=== PATIENT | female | born 1960 | race Caucasian/White ===

== ENCOUNTER 2017-02-01 08:08 | Day surgery (SDC) | payer BC, OTHER ==
[~2017-02-01 08:08] MED LIST: Buffered Lidocaine 0.9% SYRIN* 5 ML/SYR SYRINGE INTRADERM ONE; Dexamethasone IV* 4 MG/ML 1 ML (4 MG) IV SLOW PU ONE; Famotidine IV* 10 MG/ML 2 ML (20 mg) IV ONE; Scopolamine 1.5 mg* PATCH TRANSDERM ONE
[2017-02-01] MEDS ORDERED: Scopolamine 1.5 mg* PATCH ONE (08:32)
[2017-02-01] MEDS ORDERED: Famotidine IV* 10 MG/ML 2 ML (20 mg) ONE (08:33)
[2017-02-01] MEDS ORDERED: ceFAZolin 2 GM PREMIX (*) 50 ML IVPB ONE (08:33)
[2017-02-01] MEDS ORDERED: Dexamethasone IV* 4 MG/ML 1 ML (4 MG) ONE (08:33)
[2017-02-01] MEDS ORDERED: Lidocaine 2% PF * 5 ML VIAL ONE (08:44)
[2017-02-01] MEDS ORDERED: Propofol* 10 MG/ML 20 ML BTL IV PUSH ONE (08:44)
[2017-02-01] MEDS ORDERED: fentaNYL* 50 MCG/ML 5 ML VIAL (250 MCG VIAL) ONE (08:45)
[2017-02-01] MEDS ORDERED: Midazolam* 1 MG/ML 5 ML VIAL (5 MG) ONE (08:45)
[2017-02-01] MEDS ORDERED: Bupivacaine 0.25% SDV* 30 ML ONE (09:02)
[2017-02-01] MEDS ORDERED: Ondansetron INJ* 2 MG/ML VIAL ONE (09:42)
[2017-02-01] MEDS ORDERED: EPHEDrine (Pressors)* 50 MG/ML VIAL ONE (09:50)
[2017-02-01] MEDS ORDERED: PROCHLORPERAZINE INJ 5 MG/ML 2 ML VIAL IV PRN (10:02)
[2017-02-01] MEDS ORDERED: HYDROcodone/ACETAMIN 5-325 MG* 1 TAB PO PRN (10:02)
[2017-02-01] MEDS ORDERED: fentaNYL* 50 MCG/ML 2 ML VIAL (100 MCG VIAL) IV PRN (10:02)
[2017-02-01] MEDS ORDERED: oxyCODONE/Acetamin 5/325 MG* TAB PO PRN (10:02)
[2017-02-01] MEDS ORDERED: Ibuprofen TAB* 400 MG PO SCH (11:00)
[2017-02-01] MEDS ORDERED: PROCHLORPERAZINE INJ 5 MG/ML 2 ML VIAL ONE (11:54)
[2017-02-01] MEDS ORDERED: fentaNYL* 50 MCG/ML 2 ML VIAL (100 MCG VIAL) ONE (12:01)
[2017-02-01 13:01] VITALS: BP 128/73
--- NOTE | 2017-02-02 02:46 | OP ---
DATE OF OPERATION: 02/01/17 - [facility] DATE OF : 58 SURGEON: Trace Barnett MD MACHINIST 2ND SHIFT: KYRA Crystal. An assistant administrator was needed for the entirety of the procedure to assist with positioning of the arm and retraction. ANESTHESIOLOGIST: Dr. Yuliet Adame. ANESTHESIA: General. PRE-OP DIAGNOSES: 1. Left carpal tunnel syndrome. 2. Left stage 3 basal joint arthritis. POST-OP DIAGNOSES: 1. Left carpal tunnel syndrome. 2. Left stage 3 basal joint arthritis. OPERATIVE PROCEDURE: 1. Left open carpal tunnel release. 2. Left thumb carpometacarpal arthroplasty with trapeziectomy and split flexor carpi radialis tendon transfer for thumb suspension. INDICATIONS: Lyla is 57. She has had progressive carpal tunnel syndrome that have really become quite severe. I had seen her before for her left thumb basal joint arthritis. She has previously had a right carpal tunnel release done three and a half years ago and has done quite well from that. She did not get repeat electrodiagnostics for the left arm as she had them done on the right arm and they were quite uncomfortable and she really did not want to have them done again as her symptoms are fairly classic and I think we needed to get those done. I talked to her about her basal joint arthritis for which I had seen her before. She is braced for an extensive period of time. It is not working. She did not want to have an injection. I talked to her about the surgery and she wanted to proceed with the surgery. We talked about the risks and benefits of postoperative course. ESTIMATED BLOOD LOSS: 5 mL. COMPLICATIONS: None. FINDINGS: As expected, severe DJD in the basal joint. The scaphotrapezoid joint looked quite healthy. DESCRIPTION OF PROCEDURE: Lyla was seen in the preoperative holding area. The correct site, side, and procedure were identified. We came back to the operating room. The arm was prepped and draped in the usual fashion. A formal time-out was performed after anesthesia was induced. I began by exsanguinating the arm with the Esmarch and the tourniquet was inflated to 250 mmHg. I then made a 2 to 3 cm incision longitudinally in the standard location for an open carpal tunnel release. Dissection was carried down through the subcutaneous tissue in her palmar fascia. The transverse carpal ligament was released just off the radial aspect of the hook of the hamate. I completed the release distally and then worked proximally until I got to the proximal aspect of the incision. I released the subcutaneous tissue and retracted this volarly and ulnarly and then direct visualization released the remainder of the transverse carpal ligament and distal antebrachial fascia to the level several centimeters proximal to the wrist flexion crease. I checked and there was absolutely no compression on the nerve. I went ahead and irrigated out the wound. The skin was closed with 4-0 nylon suture. I then turned my attention to the base of the thumb. I made a 3 cm incision from the base of the thumb down towards the radial styloid just dorsal to the first dorsal compartment tendons. The dissection was carried down longitudinally to preserve the coursing sensory nerves. The radial artery was identified and mobilized and protected throughout the entirety of the case. The venous plexus deep to the radial artery was cauterized. I then used my 15 blade to longitudinally incised the capsule and raised subperiosteal and capsular flaps exposing the scaphotrapezial joint, the carpometacarpal joint and the trapeziotrapezoid joint. I used a [place] blade to circumferentially release the soft tissue off the trapezium. The trapezium was then excised piecemeal with the rongeur. Once this was completely excised, I went ahead and irrigated out the wound. I then used a sequentially large drill bits to make a drill hole through the base of the thumb metacarpal from the dorsal radial aspect of the metacarpal out exiting out the volar ulnar margin of the articular surface near the second metacarpal base. The drill hole was irrigated out. All the loose fragments were removed and the area was cleaned up. I then turned my attention to the forearm. I made three transverse incisions, each more proximal than the lest on the volar forearm directly over the flexor carpi radialis tendon. Dissection was carried down and the sheath was opened through the distal most incision. I released the sheath along its course and released any tendon adhesions. I passed a right angle underneath the tendon and elevated the tendon out of the wound. This was then split with a 15 blade and a 25-gauge wire was passed through the split of the tendon. I then, in similar fashion, freed up the sheath through each of the proximal 2 incisions until the sheath was released along the entirety of the FCR tendon and all the adhesions were released with the tenotomy scissors. I then pulled the 25-gauge wire sequentially into each of the proximal wounds with use of Inocencia clamp until the split in the FCR tendon was complete and the FCR tendon was released proximally at the musculotendinous junction. Any muscular attachments to the split end of the tendon were cleaned off with 15 blade. I then used 3-0 Ethibond suture to secure the tail of the proximal aspect of the tendon to avoid any tendon fraying or splinting during passage of the transfer. With the tendon tail in the distal most wound, I went ahead and passed a 25 gauge wire down into the thumb base wound through the FCR sheath distally and retrieved another 25-gauge wire, which was pulled up into the distal forearm wound. The tendon tail was then shuttled with that 25 gauge wire down into the thumb wound. The split was completed up to the base of the second metacarpal. I then used a 25-gauge wire to pass the tendon split through the drill hole in the base of the metacarpal. It was then woven back around the intact limb of the FCR and appropriate tension was set and the tendon transfer was secured with multiple figure-of- eight 3-0 Ethibond sutures. First suture grabbed all three limbs of the transfer and then the later sutures sewed the intact limb to the intact limb. The remainder of the tendon tail was rolled up into a ball and secured with a 3- 0 Ethibond suture. This was then docked as an interposition between the base of the thumb metacarpal and the distal pole of the scaphoid. The wound was copiously irrigated. Please note that after I removed the trapezium, I did pull longitudinal traction on the index finger and with the use of a [place] elevator, was able to open up and inspect the scaphotrapezoid joint and that looked very healthy. After I had completed the tendon transfer and tendon interposition, I went ahead and sewed the capsule closed with 3-0 Ethibond suture until watertight seal was obtained. All the operative sites were then infiltrated with 0.25% plain Marcaine. Skin was closed with 4-0 nylon suture. Wounds were dressed with Xeroform, 4x4, sterile Webril, and a thumb spica splint was applied leaving the IP joint free. Tourniquet was deflated and the hand pinked up immediately. Total tourniquet time was around 90 minutes. The patient was then awoken up and taken to the recovery room in stable condition. [id number]/[facility] #: [id number] MTDD
[2017-02-04] MEDS ORDERED: Scopolomine PATCH Remove* 1 NOTE MISC PATCH OFF ONE (06:00)
== END 2017-02-01 13:03 | disposition home or self-care (01) ==
LOC: OREAST 08:08
PROVIDERS: ATTEND Orthopaedic Surgery Hand Surgery
PROC: 01N50ZZ Release Median Nerve, Open Approach (ICD-10-PCS; principal; 2017-02-01 09:30)
DX: G56.02 Carpal tunnel syndrome, left upper limb (principal); M18.12 Unilateral primary osteoarthritis of first carpometacarpal joint, left hand; J45.909 Unspecified asthma, uncomplicated; Z79.51 Long term (current) use of inhaled steroids; Z87.891 Personal history of nicotine dependence
CPT/HCPCS: 88304; 88311; A9270-GY; J0690; J0780; J1100; J2250; J2405; J2704; J3010

== ENCOUNTER 2017-03-12 12:06 | Day surgery (SDC) | payer OTHER ==
[~2017-03-12 12:06] MED LIST changes: -Dexamethasone IV* 4 MG/ML 1 ML (4 MG) IV SLOW PU ONE; +Ondansetron INJ* 2 MG/ML VIAL IV PRN; +PROCHLORPERAZINE INJ 5 MG/ML 2 ML VIAL IV PRN; -Scopolamine 1.5 mg* PATCH TRANSDERM ONE; +Scopolamine 1.5 mg* PATCH TRANSDERM PRN; +oxyCODONE/Acetamin 5/325 MG* TAB PO PRN
[2017-03-12] MEDS ORDERED: ceFAZolin 2 GM PREMIX (*) 2 GM/50 ML BAG IVPB ONE (12:18)
[2017-03-12] MEDS ORDERED: Famotidine IV* 10 MG/ML 2 ML (20 mg) ONE (12:18)
[2017-03-12] MEDS ORDERED: Buffered Lidocaine 0.9% SYRIN* 5 ML/SYR SYRINGE ONE (12:18)
[2017-03-12] MEDS ORDERED: Bupivacaine 0.25% SDV* 30 ML ONE (12:22)
[2017-03-12] MEDS ORDERED: KETAMINE HCL* 50 MG/ML 10 ML VIAL ONE (12:35)
[2017-03-12] MEDS ORDERED: fentaNYL* 50 MCG/ML 2 ML VIAL (100 MCG VIAL) ONE ×3 (12:35→14:55)
[2017-03-12] MEDS ORDERED: Midazolam* 1 MG/ML 5 ML VIAL (5 MG) ONE (12:35)
[2017-03-12] MEDS ORDERED: Lidocaine 2% PF* 10 ML AMP ONE (14:08)
[2017-03-12] MEDS ORDERED: Lidocaine 2% PF * 5 ML VIAL ONE (14:08)
[2017-03-12] MEDS ORDERED: Propofol* 10 MG/ML 20 ML BTL IV PUSH ONE ×2 (14:08→14:45)
[2017-03-12] MEDS: fentaNYL* 50 MCG/ML 2 ML VIAL (100 MCG VIAL) IV PRN ×3 (14:56→15:23)
[2017-03-12] MEDS ORDERED: HYDROcodone/ACETAMIN 5-325 MG* 1 TAB ONE (15:18)
[2017-03-12] MEDS ORDERED: Ondansetron INJ* 2 MG/ML VIAL ONE (15:45)
[2017-03-12 16:43] VITALS: BP 139/87
--- NOTE | 2017-03-13 18:46 | OP ---
OPERATIVE REPORT: DATE OF OPERATION: 03/12/17 - [facility] DATE OF : 58 SURGEON: Trace Barnett MD ASSISTANTS: 1. KYRA Crystal. 2. KYRA Caballero ANESTHESIOLOGIST: Dr. Young. ANESTHESIA: Local MAC. PRE-OP DIAGNOSES: Severe neuropathic pain in the median nerve distribution and significant median nerve neuritis status post carpal tunnel release and basal joint arthroplasty 5 to 6 weeks ago. POST-OP DIAGNOSES: Severe neuropathic pain in the median nerve distribution and significant median nerve neuritis status post carpal tunnel release and basal joint arthroplasty 5 to 6 weeks ago. OPERATIVE PROCEDURE: Revision, left carpal tunnel release and flexor tendon tenosynovectomy. INDICATIONS: Lyla had the aforementioned surgery, which went very uneventfully about 5 to 6 weeks ago. Unfortunately, from the onset, she has had severe neuropathic pain in the index, middle, and ring fingers, not really localized to one particular common digital nerve or area, it is just generally in the distribution of the median nerve. We had been watching it and see if it would improve; however, 5 to 6 weeks after surgery, I saw her just a couple of days on Sunday, and it has just been unrelenting. I told her we could revise the carpal tunnel release with an extensile approach and just make sure there is absolutely no compression on the nerve and there is no hematoma or an incomplete release. She had wanted to proceed with that. The thumb is doing well. ESTIMATED BLOOD LOSS: 2 mL. COMPLICATIONS: None. FINDINGS: Significant flexor tendon tenosynovitis, but otherwise healthy nerve. I do not appreciate an incomplete release. DESCRIPTION OF PROCEDURE: Lyla was seen in the preoperative holding area where the correct site, side, and procedure were identified. We came back to the operative room. The arm was then prepped and draped in the usual fashion and a time-out was performed. I exsanguinated the arm with the Esmarch and the tourniquet was inflated to 250 mmHg. I utilized the prior incision and extended it a bit distally and then proximally, I flexion crease in Liseth-type fashion and ulnar to the palmaris longus tendon. I dissected it down with the knife and ultimately started more proximally and more healthy tissue out of the bed of scar tissue. The fascia was opened, the median nerve was identified. This was then taken back distally through the carpal tunnel. I did not really appreciate any clot that looked like that was unhealthy made of collagen fibers to suggest an incomplete release. I took the release all the way down to where the median nerve branch was into the common digital nerve. There was abundant flexor tenosynovium and I went ahead and excised all of that. I did not appreciate any hematoma or anything along those lines. I made sure the nerve was nicely free and mobile. At this point, everything was looking good. The nerve was completely released proximally and distally. We had a nice large incision, we could see everything. I therefore irrigated out the wound. Skin was closed with 4-0 nylon suture. The wound was dressed with Xeroform, 4x4's, sterile Webril, and an Drake bandage. I had infiltrated the Marcaine prior to making skin incision. She was then woken up and taken to the recovery room in stable condition. [id number]/[facility] #: [id number] MIKEY
[2017-03-15] MEDS ORDERED: Scopolomine PATCH Remove* 1 NOTE MISC PATCH OFF ONE (08:35)
== END 2017-03-12 17:08 | disposition home or self-care (01) ==
LOC: OR 12:06
PROVIDERS: ATTEND Orthopaedic Surgery Hand Surgery
DX: G56.12 Other lesions of median nerve, left upper limb (principal); M65.842 Other synovitis and tenosynovitis, left hand; Z98.890 Other specified postprocedural states; Z88.6 Allergy status to analgesic agent; Z88.8 Allergy status to other drugs, medicaments and biological substances; Z87.891 Personal history of nicotine dependence; G56.03 Carpal tunnel syndrome, bilateral upper limbs; M18.12 Unilateral primary osteoarthritis of first carpometacarpal joint, left hand
CPT/HCPCS: J0690; J2001; J2250; J2405; J2704; J3010

== ENCOUNTER 2018-09-20 13:35 | Emergency (ER) | payer OTHER ==
[2018-09-20 14:17] VITALS: BP 136/88
--- NOTE | 2018-09-20 14:59 | UC ---
Upper Extremity HPI - HPI Summary HPI Summary: 58 year old female with H/O psoriatic arthritis, Thrombocytopenia presents after fall few hours ago after tripping on rock, FOOSH, pain L wrist, R hand, abrasions R elbow, bruising/ swelling 5th R hand. On ASA 81mg daily for thrombo, humara for psoriatic arthritis - History of Current Complaint Chief Complaint: UCUpperExtremity Stated Complaint: LT WRIST RT HAND ELLOW Time Seen by Provider: 09/20/18 14:15 Hx Obtained From: Patient ?: No Onset/Duration: Sudden Onset, Lasting Hours Severity Initially: Moderate Severity Currently: Moderate Pain Intensity: 8 Pain Scale Used: 0-10 Numeric Location Of Pain: Is Discrete @ - right hand, left wrist Character: Sharp, Aching, Throbbing Aggravating Factor(s): Movement, Flexion, Extension Alleviating Factor(s): Ice, Rest Associated Signs And Symptoms: Positive: Swelling, Redness, Bruising Related History: Occupational Injury - Allergies/Home Medications Allergies/Adverse Reactions: Allergies Allergy/AdvReac Type Severity Reaction Status Date / Time indomethacin [From Indocin] Allergy Rash Verified 09/20/18 14:20 meloxicam Allergy Hives Verified 09/20/18 14:20 Home Medications: Home Medications Adalimumab (NF) [Humira Pen (NF)] 40 mg SUBCUT SEE INSTRUCTIONS 09/20/18 [ History Confirmed 09/20/18] Cetirizine* [ZyrTEC 10 MG TAB*] 10 mg PO DAILY 09/20/18 [History Confirmed 09/20] Alexander-3 Fatty Acids/Fish Oil [Alexander 3] 1 cap PO DAILY 09/20/18 [History Confirmed 09/20/18] PMH/Surg Hx/FS Hx/Imm Hx Previously Healthy: Yes - Surgical History Surgical History: Yes Surgery Procedure, Year, and Place: 1974 APPENDECTOMY [place]. 1986 OVARIAN CYST REMOVED [place]. 1995 BILATERAL TUBAL LIGATION [facility] - Social History Alcohol Use: Weekly Alcohol Amount: 1-2 PER WEEK- WINE Substance Use Type: None Smoking Status (MU): Former Smoker Amount Used/How Often: 1 PACK PER WEEK X 20-25 YEARS Have You Smoked in the Last Year: No When Did the Patient Quit Smoking/Using Tobacco: AGE 44 - Immunization History Most Recent Tetanus Shot: within 5 years Review of Systems All Other Systems Reviewed And Are Negative: Yes Musculoskeletal: Positive: Arthralgia, Decreased ROM, Edema, Myalgia Is Patient Immunocompromised?: No Physical Exam Triage Information Reviewed: Yes Appearance: Well-Appearing, Well-Nourished, Pain Distress - mild to moderate Vital Signs: Initial Vital Signs Temp 98.8 F 09/20/18 14:06 Pulse 64 09/20/18 14:06 Resp 20 09/20/18 14:06 BP 136/88 09/20/18 14:06 Pulse Ox 97 09/20/18 14:06 Vital Signs Reviewed: Yes Eyes: Positive: Conjunctiva Clear Musculoskeletal: Positive: Strength Intact, ROM Intact - b/l, Edema @ - distal l ulna. Negative: No Edema Neurological: Positive: Alert Skin: Positive: Other - superficial abrasions over right elbow without tenderness, bleeding. hematoma formation over right 5th MCP, non tender. Full movement of all fingers, MCP o nright hand, SITLT over all fingertips b/l, full strength/ ROM right wrist. L wrist with TTP over distal unla with mild swelling noted, no ecchymosis. decreased ROM f thumb due to pain, + ttp over thenar emminese. no pain over radius. + pain with wrist flexion/ extension left wrist Upper Extremity Course/Dx - Course Course Of Treatment: radiogrpah- negative for fracture, possible avulsion fracture but pt has h/o psoriatic arthritis as well, no pain over avulsion sites, wrist spling placed, follow up with ortho, wound cleaned. - Differential Dx/Diagnosis Differential Diagnosis/HQI/PQRI: Contusion, Laceration, Strain, Sprain Provider Diagnosis: Abrasion, elbow w/o infection, Strain of wrist, left Discharge - Sign-Out/Discharge Documenting (check all that apply): Patient Departure All imaging exams completed and their final reports reviewed: Yes - Discharge Plan Condition: Good Disposition: HOME Patient Education Materials: Wrist Injury (ED), Splint Care (ED), R.I.C.E. Treatment (ED) Forms: *Work Release Referrals: Lalitha Shannon NP [Primary Care Provider] - Additional Instructions: - FOllow up with orthopedics within 3-5 days for repeat evaluation - Motrin/ Tylenol as needed for pain - Rest, Ice, Elevate - Keep wrist splint on at all times other than showering - may remove splint and move wrist gentle as tolerated - GO to ER with increased pain, loss of motion, sensation - Billing Disposition and Condition Condition: GOOD Disposition: Home - Attestation Statements Provider Attestation: Patient not seen or examined by me. I was available for consult.
== END 2018-09-20 16:23 | disposition home or self-care (01) ==
LOC: UCEAST 13:35
DX: S66.912A Strain of unspecified muscle, fascia and tendon at wrist and hand level, left hand, initial encounter (principal); S50.312A Abrasion of left elbow, initial encounter; W19.XXXA Unspecified fall, initial encounter; M19.90 Unspecified osteoarthritis, unspecified site; Z79.82 Long term (current) use of aspirin; Z87.891 Personal history of nicotine dependence; Z79.899 Other long term (current) drug therapy; Z88.8 Allergy status to other drugs, medicaments and biological substances
CPT/HCPCS: 99213; G0463